=== PATIENT | male | born 1940 | race Caucasian/White ===

== ENCOUNTER 2017-02-09 07:05 | Inpatient (IN) | payer MEDICARE ==
[2017-02-04 09:24] VITALS: BMI 40.8
[~2017-02-09 07:05] MED LIST: ALPRAZolam 0.25 MG TAB PO PRN; ASPIRIN 325 MG TAB PO ONE; SODIUM CHLORIDE 0.9% 1,000 ML in EMPTY BAG 1 BAG IV ONE
[2017-02-09 07:47] LABS: Glucose,Whole Blood 151 mg/dL (75-99)
[2017-02-09] MEDS ORDERED: MIDAZOLAM 2 MG/2 ML VIAL IV ONE ×2 (11:15→13:15)
[2017-02-09] MEDS ORDERED: diphenhydrAMINE 50 MG/ML 1 ML VIAL IVP ONE ×2 (11:16→13:16)
[2017-02-09] MEDS ORDERED: ACETAMINOPHEN TAB 325 MG TAB ONE (11:28)
[2017-02-09] MEDS ORDERED: VERAPAMIL 2.5 MG/ML 2 ML AMP ONE (12:47)
[2017-02-09] MEDS ORDERED: MIDAZOLAM 2 MG/2 ML VIAL ONE (12:47)
[2017-02-09] MEDS ORDERED: diphenhydrAMINE 50 MG/ML 1 ML VIAL ONE (12:56)
[2017-02-09] MEDS ORDERED: HEPARIN SODIUM 1,000 UNIT/ML VIAL ONE (12:56)
[2017-02-09] MEDS ORDERED: LIDOCAINE 2% INJ 20 MG/ML SQ ONE (13:22)
[2017-02-09] MEDS ORDERED: VERAPAMIL SYRINGE (5 MG/10 ML) INTRACORON ONE ×2 (13:23→13:24)
[2017-02-09] MEDS ORDERED: HEPARIN SODIUM 1,000 UNIT/ML VIAL IV ONE (13:24)
[2017-02-09] MEDS ORDERED: BIVALIRUDIN BOLUS 250 MG/50 ML IV ONE (13:46)
[2017-02-09] MEDS ORDERED: BIVALIRUDIN 250 MG in SODIUM CHLORIDE 0.9% 50 ML IV ONE (13:47)
[2017-02-09] MEDS ORDERED: NITROGLYCERIN 1000MCG/10ML SYRINGE INTRACORON ONE (13:56)
[2017-02-09] MEDS ORDERED: CLOPIDOGREL 75 MG TAB ONE (14:01)
[2017-02-09] MEDS ORDERED: IODIXANOL 320 MG/ML 100 ML INTRAARTER ONE (14:02)
[2017-02-09] MEDS ORDERED: CLOPIDOGREL 75 MG TAB PO ONE (14:11)
[2017-02-09] MEDS ORDERED: INSULIN LISPRO (humaLOG) 300 UNIT/3 ML VIAL SQ PRN (15:06)
[2017-02-09 15:13] LABS: Basophils # (A) 0.1 k/uL (0-0.2); Basophils % (A) 1 %; CH 31.9; Eosinophils # (A) 0.3 k/uL (0-0.7); Eosinophils % (A) 3 %; HCT 43.9 % (39.0-53.0); HGB 14.7 gm/dL (13.0-17.5); Luc # (Auto) 0.13; Luc % (Auto) 1; Lymphocytes # (A) 1.2 k/uL (1.0-4.8); Lymphocytes % (A) 12 %; MCH 31.6 pg (25.0-35.0); MCHC 33.5 g/dL (31.0-37.0); MCV 94.2 fL (80.0-100.0); Mean Platelet Volume 7.8; Monocytes # (A) 0.6 k/uL (0-1.0); Monocytes % (A) 6 %; Neutrophils # (A) 8.1 k/uL (1.3-7.7); Neutrophils % (A) 78 %; RBC 4.66 m/uL (4.30-5.90); RDW 14.2 % (11.5-15.5); WBC 10.4 k/uL (3.8-10.6); WBC (Perox) 9.98
[2017-02-09 15:51] LABS: Anion Gap 12 mmol/L; Blood Urea Nitrogen 16 mg/dL (9-20); Calcium 9.3 mg/dL (8.4-10.2); Carbon Dioxide 23 mmol/L (22-30); Chloride 107 mmol/L (98-107); Glucose 137 mg/dL (74-99); Non-African American GFR(MDRD) >60 (>60 ml/min/1.73 sqM); Potassium 3.8 mmol/L (3.5-5.1); Sodium 142 mmol/L (137-145)
[2017-02-09] MEDS: SODIUM CHLORIDE 0.9% 1,000 ML IV SCH (16:45)
[2017-02-09 17:02] LABS: Glucose,Whole Blood 143 mg/dL (75-99)
[2017-02-09] MEDS ORDERED: INSULIN LISPRO (humaLOG) 300 UNIT/3 ML VIAL SQ SCH (17:30)
[2017-02-09] MEDS ORDERED: ATORVASTATIN 80 MG TAB PO SCH (17:30)
[2017-02-09] MEDS ORDERED: ACETAMINOPHEN TAB 325 MG TAB PO PRN (20:36)
[2017-02-09] MEDS ORDERED: TEMAZEPAM 15 MG CAP PO PRN (20:37)
[2017-02-09] MEDS ORDERED: MONTELUKAST 10 MG TAB PO SCH (21:00)
[2017-02-09] MEDS ORDERED: INSULIN DETEMIR 100 UNIT/ML 10 ML VIAL SQ SCH (21:00)
[2017-02-09 21:02] LABS: Glucose,Whole Blood 128 mg/dL (75-99)
[2017-02-10] MEDS: SODIUM CHLORIDE 0.9% 1,000 ML IV SCH (00:18)
[2017-02-10] MEDS ORDERED: FUROSEMIDE 10 MG/ML 4 ML VIAL ONE (02:32)
[2017-02-10] MEDS ORDERED: FUROSEMIDE 10 MG/ML 4 ML VIAL IV STA ×2 (02:34→10:02)
[2017-02-10 02:36] LABS: Glucose,Whole Blood 135 mg/dL (75-99)
[2017-02-10] MEDS: NITROGLYCERIN SL TABS 0.4 MG TAB SUBLINGUAL PRN ×2 (02:36→02:41)
--- NOTE | 2017-02-10 03:45 | XR ---
EXAM: XR Chest, 1 View. CLINICAL HISTORY: Shortness of breath. TECHNIQUE: Frontal view of the chest. COMPARISON: CT chest dated 08/05/2015. FINDINGS: Lungs: Interstitial prominence and mild haziness in the lungs, most prominent in the lower lung zones (L>R). Pleural space: No large pleural effusion or pneumothorax. Heart: Mildly enlarged cardiac silhouette. Mediastinum: Unremarkable. Bones/joints: Osseous structures appear intact. IMPRESSION: Interstitial prominence and mild haziness in the lungs, most prominent in the lower lung zones (L>R). Findings may be due to interstitial edema although infectious or inflammatory process cannot be excluded. Recommend clinical correlation.
[2017-02-10] MEDS ORDERED: NITROGLYCERIN OINT 1 INCH/GM PACKET TOPICAL ONE (04:55)
[2017-02-10] MEDS ORDERED: HEPARIN SODIUM,PORCINE 5,000 UNIT/ML 1 ML VIAL IV PRN (05:05)
[2017-02-10] MEDS ORDERED: HEPARIN SODIUM,PORCINE 5,000 UNIT/ML 1 ML VIAL IV ONE (05:05)
[2017-02-10 05:06] LABS: ABG HCO3 21 mmol/L (21-25); ABG PCO2 31 mmHg (35-45); ABG PH 7.46 (7.35-7.45); ABG PO2 72 mmHg (83-108); ABG TCO2 22 mmol/L (19-24)
[2017-02-10] MEDS ORDERED: HEPARIN SODIUM,PORCINE/D5W PMX 25,000 UNIT in DEXTROSE/WATER 1 500ML.BAG IV SCH (05:15)
[2017-02-10 05:42] LABS: Glucose,Whole Blood 143 mg/dL (75-99)
[2017-02-10 06:09] LABS: Basophils % (A) 0 %; CH 31.9; CHCM 33.9; Eosinophils % (A) 0 %; HCT 43.4 % (39.0-53.0); HDW 2.56; HGB 14.4 gm/dL (13.0-17.5); Luc # (Auto) 0.12; Luc % (Auto) 1; Lymphocytes # (A) 0.7 k/uL (1.0-4.8); Lymphocytes % (A) 6 %; MCH 31.4 pg (25.0-35.0); MCHC 33.2 g/dL (31.0-37.0); MCV 94.7 fL (80.0-100.0); Mean Platelet Volume 8.1; Monocytes # (A) 0.6 k/uL (0-1.0); Monocytes % (A) 5 %; Neutrophils # (A) 10.6 k/uL (1.3-7.7); Neutrophils % (A) 88 %; RBC 4.59 m/uL (4.30-5.90); RDW 14.3 % (11.5-15.5); WBC 12.1 k/uL (3.8-10.6)
[2017-02-10 06:32] LABS: Anion Gap 11 mmol/L; Blood Urea Nitrogen 16 mg/dL (9-20); Calcium 9.3 mg/dL (8.4-10.2); Carbon Dioxide 26 mmol/L (22-30); Chloride 107 mmol/L (98-107); Glucose 146 mg/dL (74-99); Non-African American GFR(MDRD) >60 (>60 ml/min/1.73 sqM); Potassium 3.9 mmol/L (3.5-5.1); Sodium 144 mmol/L (137-145)
[2017-02-10] MEDS ORDERED: INSULIN LISPRO (humaLOG) 300 UNIT/3 ML VIAL SQ SCH ×2 (07:30→12:30)
[2017-02-10] MEDS ORDERED: NITROGLYCERIN OINT 1 INCH/GM PACKET TOPICAL SCH (08:00)
[2017-02-10] MEDS ORDERED: SODIUM CHLORIDE 0.9% 1,000 ML in EMPTY BAG 1 BAG IV ONE (08:23)
[2017-02-10] MEDS ORDERED: ALPRAZolam 0.5 MG TAB PO PRN (08:23)
[2017-02-10] MEDS ORDERED: ALPRAZolam 0.25 MG TAB PO PRN (08:23)
[2017-02-10] MEDS ORDERED: ASPIRIN 325 MG TAB PO STA (08:23)
[2017-02-10] MEDS ORDERED: NITROGLYCERIN SL TABS 0.4 MG TAB SUBLINGUAL PRN (08:23)
[2017-02-10] MEDS ORDERED: ATORVASTATIN 80 MG TAB PO STA (08:23)
[2017-02-10] MEDS ORDERED: ISOSORBIDE MONONITRATE ER 60 MG TAB.ER.24H PO SCH (09:00)
[2017-02-10] MEDS ORDERED: amLODIPine 10 MG TAB PO SCH (09:00)
[2017-02-10] MEDS ORDERED: CLOPIDOGREL 75 MG TAB PO SCH (09:00)
[2017-02-10] MEDS ORDERED: METOPROLOL TARTRATE 50 MG TAB PO SCH (09:00)
[2017-02-10] MEDS ORDERED: ASPIRIN 81 MG CHEW PO SCH (09:00)
[2017-02-10] MEDS ORDERED: LISINOPRIL 5 MG TAB PO SCH (09:00)
--- NOTE | 2017-02-10 10:16 | ECHOF ---
Referral Reason:post cath chest pain MEASUREMENTS -------- HEIGHT: 182.9 cm WEIGHT: 126.1 kg BP: 130/76 IVSd: 1.1 cm (0.6 - 1.1) LVIDd: 6.1 cm (3.9 - 5.3) LVPWd: 1.6 cm (0.6 - 1.1) IVSs: 1.1 cm LVIDs: 5.4 cm LVPWs: 1.9 cm LAESV Index (A-L): 29.23 ml/m Ao Diam: 3.0 cm (2.0 - 3.7) AV Cusp: 1.1 cm (1.5 - 2.6) LA Diam: 4.8 cm (2.7 - 3.8) MV EXCURSION: 16.790 mm (> 18.000) MV EF SLOPE: 134 mm/s (70 - 150) EPSS: 2.3 cm MV E Hosea: 1.70 m/s MV DecT: 179 ms MV A Hosea: 0.25 m/s MV E/A Ratio: 6.70 AV maxP.96 mmHg AV meanP.07 mmHg AR PHT: 342 ms RAP: 5.00 mmHg RVSP: 16.22 mmHg FINDINGS -------- Undetermined rhythm. This was a technically difficult study with suboptimal views. The left ventricle is mildly dilated. There is mild concentric left ventricular hypertrophy. There is severe global hypokinesis of LV . Overall left ventricular systolic function is severely impaired with, an EF between 20 - 25 %. Mitral Doppler inflow pattern suggests diastolic filling abnormality 34.11. The right ventricle is normal in size and function. LA is midly dilated 29-33ml/m2. The right atrium is normal in size. 1.5mg of Definity was utilized for enhancement of images Aortic valve is trileaflet and is mildly thickened. There is mild aortic stenosis present. Peak/mean gradient across the Aortic Valve is 20.96mmHg / 13.07mmHg. The mitral valve leaflets are mildly thickened. Mild mitral regurgitation is present. Cannot rule out vegetation. Mild tricuspid regurgitation present. The right ventricular systolic pressure, as measured by Doppler, is 16.22mmHg. Pulmonic valve appears structurally normal. The aortic root size is normal. The pericardium is normal. CONCLUSIONS -------- 1. Undetermined rhythm. 2. The right atrium is normal in size. 3. 1.5mg of Definity was utilized for enhancement of images 4. Aortic valve is trileaflet and is mildly thickened. 5. There is mild aortic stenosis present. 6. Peak/mean gradient across the Aortic Valve is 20.96mmHg / 13.07mmHg. 7. The mitral valve leaflets are mildly thickened. 8. Mild mitral regurgitation is present. 9. Cannot rule out vegetation. 10. Mild tricuspid regurgitation present. 11. The right ventricular systolic pressure, as measured by Doppler, is 16.22mmHg. 12. This was a technically difficult study with suboptimal views. 13. Pulmonic valve appears structurally normal. 14. The aortic root size is normal. 15. The pericardium is normal. 16. The left ventricle is mildly dilated. 17. There is mild concentric left ventricular hypertrophy. 18. There is severe global hypokinesis of LV . 19. Overall left ventricular systolic function is severely impaired with, an EF between 20 - 25 %. 20. Mitral Doppler inflow pattern suggest diastolic filling abnormality 34.11. 21. The right ventricle is normal in size and function. 22. LA is midly dilated 29-33ml/m2. [facility]/ILO INTELLIGENCE SUPPORT: Susie Blair RDCS
[2017-02-10] MEDS ORDERED: NITROGLYCERIN-D5W PMX 50 MG in DEXTROSE/WATER 1 250ML.BAG IV SCH (10:30)
[2017-02-10 11:05] VITALS: BP 129/80; PULSE 120; RESP 30; TEMP 97.1
[2017-02-10] MEDS ORDERED: SODIUM CHLORIDE 0.9% 1,000 ML IV ONE (11:07)
[2017-02-10] MEDS ORDERED: NOREPINEPHRIN 4 MG-0.9% NS PMX 4 MG/250 ML ML IV ONE (11:07)
[2017-02-10] MEDS ORDERED: EPINEPHrine 10 ML SYRINGE (0.1 MG/ML) IV ONE ×3 (11:25→11:39)
[2017-02-10] MEDS ORDERED: DOPamine DRIP 800 MG in DEXTROSE/WATER 1 500ML.BAG IV ONE (11:45)
[2017-02-10] MEDS ORDERED: IOHEXOL 350 MG/ML 100 ML BOTTLE INTRATHECA ONE (11:54)
[2017-02-10] MEDS ORDERED: EPINEPHrine 10 ML SYRINGE (0.1 MG/ML) ONE (12:52)
[2017-02-10] MEDS ORDERED: SODIUM BICARB 8.4% 50 ML SYR (1 MEQ/ML) ONE (12:52)
--- NOTE | 2017-02-10 15:23 | PN ---
Mr. Bhatti at 11:47 today. I waited and after his came, I spoke to her in the surgical lounge at length. I gave her the details of the procedure that was performed yesterday again and events of last night, which included some shortness of breath. I also suggested that we did a prolonged CPR, resuscitated him, then I performed coronary angiography which revealed that the circumflex was patent with intrinsic dissection, but good flow. RCA was widely patent. I do not believe this is an acute occlusion issue. Probably it is a worsening heart failure in addition to some ischemia as a combination. Patient's and son were both understanding. I spoke to his son Mr. Jed Bhatti as well and explained to them the details of the events and the unfortunate outcome. They seemed both to be very understanding and appreciative.
--- NOTE | 2017-02-10 18:05 | CC ---
DATE OF SERVICE: 02/09/2017. PROCEDURE: Coronary left heart catheterization and coronary angiography. PERFORMED BY: Dr. Radha Noel. CLINICAL INFORMATION: Mr. Riaz Bhatti is a 76-year-old gentleman with a history of type 2 diabetes, hypertension, hyperlipidemia, previous bypass surgery who underwent stenting of circumflex in 2 areas performed by me in September 2016. This gentleman has been having symptoms strongly suggestive of angina, was brought in for the procedure electively. He has history of obesity, obstructive sleep apnea syndrome, wears a BiPAP at night. He also has type 2 diabetes mellitus. In 1997 he had aortocoronary bypass surgery with SHELL to LAD and a vein graft to the diagonal but over the years the vein graft to the diagonal was occluded. RCA has been patent, was stented in May 2014 and the last study revealed that this vessel was widely patent. PROCEDURE NOTE: Under local anesthesia and strict aseptic precautions, a 6 Senegalese introducer was placed in the left radial artery. I used a Judit catheter to perform selective injection of the SHELL graft and also of the ewiiaapaayp RCA. I then used a standard left Max catheter to perform selective coronary angiography. I noted that the circumflex that was stented in two areas, which was the mid and distal area. The distal one was widely patent and the proximal portion of the stented segment and also proximal to the stented segment had any area of narrowing of up to 80 to 90%. He was advised intervention that was performed expeditiously. CORONARY ANGIOGRAPHY FINDINGS: LEFT INTERNAL MAMMARY ARTERY GRAFT TO LAD: The graft is widely patent. The insertion site is also free of significant disease. There is diffuse disease within the ewiiaapaayp LAD and that also goes back and opacifies the diagonal. There is no significant disease and there is good flow noted in the LAD system. RIGHT CORONARY ARTERY: This vessel was previously stented in 2013. In the midportion the stent is patent. It is a very dominant vessel, has diffuse calcification, minor irregularities. No more than 30% to 35% distally bifurcates into good caliber PDA and PLV that supplies a sizable amount of myocardium. LEFT MAIN CORONARY ARTERY: A short, patent, disease-free vessel that bifurcates into LAD and circumflex. LEFT ANTERIOR DESCENDING CORONARY ARTERY: This vessel is totally occluded in the midportion after some septal and diagonal branches unchanged from before. LEFT POSTERIOR CIRCUMFLEX CORONARY ARTERY. It gives off a small first obtuse marginal a moderate size second obtuse marginal that is diffusely diseased unchanged from before. After the origin of the 2 obtuse marginals, there is evidence of restenosis in the proximal aspect of the stented segment of the proximal stent and also proximal to the lesion. The distal stent appears to be widely patent. The stent and area of narrowing is located immediately after a groove branch and appears to be about 80 to 90%. The distal stent is widely patent. FINAL IMPRESSION: This patient has a stenosis involving the circumflex just proximal to and involving the proximal portion of the proximal stent and circumflex. The distal stent is patent. SHELL to LAD is patent with diffuse narrowing involving the LAD but good flow. The RCA is widely patent and unchanged. RECOMMENDATIONS: I am recommend intervention of the circumflex and mid and proceeded to perform this in the same setting.
--- NOTE | 2017-02-10 18:12 | PTCA ---
DATE OF SERVICE: 02/09/2017 PROCEDURE: PTCA and stenting of mid circumflex. PERFORMED BY: Dr. Radha Noel. I initially tried a JL 4.5 catheter but I had difficulty switched over to Q-curved 3.5 catheter. With this I was able to get a decent guide support. I used a BMW wire to cross the lesion and wired was kept distally a 2.5 caliber, NC trek balloon 12 mm length was used to predilate the lesion. I then used a 3.25 caliber, 12 mm long Xience stent and deployed this. Stent was deployed inside of a stent in the proximal portion and also proximal to the area. Excellent angiographic result was achieved. Multiple angiograms were obtained. The patient received Angiomax bolus and drip as per protocol. He also received additional Plavix and he was already on Plavix to begin with. The TR band was then taken out as per protocol and hemostasis was secured, good saturation of the fingers of the left hand was noted. For the entire procedure of PTCA stenting and coronary angiography one hour of conscious sedation was administered and the patient was monitored very closely. Excellent angiographic result without complication was achieved and patient was sent to the room in stable condition.
--- NOTE | 2017-02-10 18:14 | LTR ---
February 10, 2017 RE: Riaz Bhatti Dear Dr. Cabrera: Thank you for the opportunity to participate in the care of Mr. Bhatti. I am pleased to report that he had a good angiographic result. The proximal stent in the circumflex appears to have restenosed and also additionally there was a lesion proximal to the stented segment as well. A drug-eluting stent was deployed. Good angiographic result was achieved and I expect he will be discharged tomorrow if he remains stable. Thank you for your referral. Please call for questions. With kind regards, Sincerely, PAM MCKEE MD
--- NOTE | 2017-02-10 18:58 | PCN ---
DATE OF PROCEDURE: 02/10/2017 PROCEDURE: Coronary angiography. PERFORMED BY: Dr. Radha Noel. CLINICAL INFORMATION: Mr. Bhatti underwent stenting of circumflex with a good result yesterday. Last night he developed shortness of breath and had mild chest discomfort, seemed to be clinically in a pulmonary edema-type picture, received Lasix this morning. I saw the patient, explained to him that his troponin level was mildly elevated, not consistent with total occlusion of the vessel; sometimes you see troponin elevation of this magnitude after intervention, but I suggested we will do a coronary angiography. He also has shortness of breath and echocardiogram revealed that there was a global decrease in contractility, which was somewhat new because his ejection fraction was in the range of 40% or so with inferolateral hypokinesia, but ejection fraction now was in the 25% range. There was no pericardial effusion. I suggested we will perform coronary angiography and restudy his vessel. However, before he could be brought down for the procedure, he developed more shortness of breath on the floor and developed severe shortness of breath and pulmonary edema. He was brought down for the procedure, and before we would place him on the table he developed significant hypotension and hypoxia. He was intubated by the nurse talent manager and then CPR was started for hypotension and lack of pulse. After CPR with multiple administrations of epinephrine and bicarbonate, his pulse returned. He was placed in the farm labor contractor and then I performed coronary angiography. PROCEDURE NOTE: From the left femoral approach, I was able to get femoral arterial access. From the right femoral approach I got a venous access. I first placed a 5 Kazakh balloon-tipped pacemaker and got good capture and I paced him at a back-up rate of 50. He was in a sinus as well as idioventricular rhythm with underlying bundle branch block. From the left coronary approach using a standard Max catheter, I performed coronary angiography and noted that the circumflex vessel was patent with some intrinsic dissection, but the flow was very brisk. There was no change in angiographic appearance of the LAD. I also performed selective coronary injection of the right coronary artery, which was also widely patent. Following these injections, patient again went into severe hypotension requiring CPR. A prolonged CPR was performed; multiple administrations of epinephrine, bicarbonate given. Also pacemaker was paced. After a very prolonged CPR, the code was called off. Patient had a flat line with no pulse and no pressure. Underlying rhythm was flat and he was only having some intermittent activity with pacemaker. Code was called off at 11:47 a.m. Patient was pronounced . I called and talked to the patient's before I started the coronary angiography and explained to her that he was not doing well and advised her to come to the surgical lounge. I asked her to have somebody else drive her. I explained that he was not doing well and that he is in a critical condition. This patient , and it appears that the circumflex vessel that was stented is patent with intrinsic dissection but brisk flow. After prolonged CPR, the intrinsic dissection was more evident, and this may be probably related to the CPR and recent procedure, but I do not believe total occlusion of circumflex was the cause of his . His LV had worsened substantially and it appeared that it was more or less of a heart failure type rather than an occlusion of the artery. Patient's troponin was also 1.1 before the procedure. At the time of this dictation I am waiting for his to come in so I can talk to her. I also spoke to Dr. Cabrera and gave him the details of the events and the mode of . The sad outcome will be discussed with the patient's as soon as she arrives.
--- NOTE | 2017-02-15 10:45 | CDI ---
In responding to this query, please exercise your independent professional judgment. The [facility] Coding Staff and Clinical Documentation Specialists appreciate your assistance in clarifying documentation, maintaining compliance with coding guidelines, accurately documenting patients condition and capturing severity of illness. The fact that a question is asked does not imply that any particular answer is desired or expected. Communication forms are a method of clarifying documentation and are not made part of the Legal Health Record. Thank you in advance for your clarification. Last Revision, December 2015 Gin Gambino [address] [facility] [place] [address] Documentation Clarification Form Date: 02/15/2017 10:33:00 AM From: Cheyenne Wolff RN, CCDS Admit Date: 02/10/2017 11:24:00 AM Patient Name: Riaz Bhatti Visit Number: [id number] Dr. Dylan Noel CHF is documented in the final Progress Note. History/Risk Factors: EF 45%, CAD, PCI, CABG Clinical Indicators: 02/10 Procedure Note: His LV had worsened substantially and it appeared that it was more or less of a heart failure type rather than an occlusion of the artery. He also has shortness of breath and echocardiogram revealed that there was a global decrease in contractility, which was somewhat new because his ejection fraction was in the range of 40% or so with inferolateral hypokinesia, but ejection fraction now was in the 25% range. Progress Note 02/10/2017: Probably it is a worsening heart failure in addition to some ischemia as a combination. VS/Pulse OX per nursing note: "Patient complained of shortness of breath. Vitals checked and lung assessment completed. Sats 89-91%, crackles heard at bases. Dr. DIMA Noel notified and order for Lasix received. Lasix given as well as PRN xanax, and sats still 89%. 5 minutes later patients sats dropped to 81% and patient having chest pain 05/10. Dr. William notified. Patient taken to clinical laboratory assistant." RR rate 30 @ 0950 BNP: 5260 02/10 Echocardiogram Results: EF 20/25%, LV is mildly dilated, mild concentric LVH, Diastolic filling abnormality, LA is mildly dilated. Mild M/T regurgitation 02/10 Chest X Ray: "Interstitial prominence and mild haziness in the lungs, most prominent in the lower lung zones (L>R). Findings may be due to interstitial edema although infectious or inflammatory process cannot be excluded." Treatment: Lasix 40mg IVP x1 In your professional opinion, can you please clarify the acuity and type of CHF if known? Acute Acute on Chronic AND Systolic Diastolic Systolic and Diastolic Cor Pulmonale (Right Sided HF w/ Pulmonary HTN) Unable to determine Other, please specify If known, please specify if Heart Failure is due to: Hypertension Rheumatic Fever Please document in your discharge summary in order to capture severity of illness and risk of mortality. Include clinical findings that support your diagnosis. FYI: Press F11 to launch patient chart. Place X here if this finding has no clinical significance, is not applicable or if you are not able to provide any additional documentation. CINDYD
--- NOTE | 2017-02-15 11:02 | CDI ---
In responding to this query, please exercise your independent professional judgment. The [facility] Coding Staff and Clinical Documentation Specialists appreciate your assistance in clarifying documentation, maintaining compliance with coding guidelines, accurately documenting patients condition and capturing severity of illness. The fact that a question is asked does not imply that any particular answer is desired or expected. Communication forms are a method of clarifying documentation and are not made part of the Legal Health Record. Thank you in advance for your clarification. Last Revision, December 2015 Gin Gambino [address] [facility] [place] [address] Documentation Clarification Form Mortality review Date: 02/15/2017 10:46:00 AM From: Cheyenne Wolff RN, CCDS Admit Date: 02/10/2017 11:24:00 AM Patient Name: Riaz Bhatti Visit Number: [id number] Dr. Dylan Noel The patient presented with the following respiratory symptoms SOB and Hypoxemia History/Risk Factors: Tobacco use: former smoker Clinical Indicators: 02/10 Procedure Note: " was brought down for the procedure, and before we would place him on the table he developed significant hypotension and hypoxia. He was intubated by the nurse supervisor shrimp pond and then CPR was started for hypotension and lack of pulse." 02/10/17 11:21 - INDIVIDUAL SMALL GROUP INSTRUCTOR Note: "called to quality control lab tech to intubate patient in distress. Pt was unresponsive on arrival in [place]. Pt was atraumatically intubated with glidescope as an 8.0 OET was placed (1055). CPR was not interrupted to intubate. Bilateral breath sounds noted, and OET was secured at 23cm. At that time the patients care was turned over to the RT and quality control lab tech RN." Vital signs/Pulse oximetry: 02/10 Nursing Note: "Patient complained of shortness of breath. Vitals checked and lung assessment completed. Sats 89-91%, crackles heard at bases. Dr. DIMA Noel notified and order for Lasix received. Lasix given as well as PRN xanax and sats still 89%. 5 minutes later patients sats dropped to 81% and patient having chest pain 7/10. Dr. William notified. Patient taken to quality control lab tech. " ABG/CBG: pH 7.46 pCO2 31 pO2 72 pHCO3 21 Treatment: Patient was intubated in Quality Cloth Tester Continuous Pulse ox: per unit protocol CPAP per previous home settings Lasix 40 IVP x1 O2: Room air, to CPAP at 5-6L, to Vent 100% FIO2 In your professional opinion, can you please clarify if these findings signify one of the following conditions? Acuity: o Acute o Chronic o Acute on Chronic Respiratory Status: o Respiratory failure with hypoxia o Respiratory failure with hypercapnia o Acute Respiratory Distress o Other Diagnosis, please specify o Unable to determine Please document in your discharge summary in order to capture severity of illness and risk of mortality. Include clinical findings that support your diagnosis. FYI: Press F11 to launch patient chart. Place X here if this finding has no clinical significance, is not applicable or if you are not able to provide any additional documentation. LEXI
--- NOTE | 2017-02-15 11:17 | CDI ---
In responding to this query, please exercise your independent professional judgment. The [employer] Coding Staff and Clinical Documentation Specialists appreciate your assistance in clarifying documentation, maintaining compliance with coding guidelines, accurately documenting patients condition and capturing severity of illness. The fact that a question is asked does not imply that any particular answer is desired or expected. Communication forms are a method of clarifying documentation and are not made part of the Legal Health Record. Thank you in advance for your clarification. Last Revision, December 2015 Gin Gambino [address] [facility] [place] [address] Documentation Clarification Form Mortality Review Date: 02/15/2017 11:02:00 AM From: Cheyenne Wolff RN,CCDS Admit Date: 02/10/2017 11:24:00 AM Patient Name: Riaz Bhatti Visit Number: [id number] Dr. Dylan Noel Hypotension is documented in the procedure and progress notes accompanied by PEA , hypoxia, and heart failure. Patient history/risk factors: CAD, HTN, Obesity, CABG, PCI, former Smoker Clinical Indicators: 02/10 Procedure Note: "developed severe shortness of breath and pulmonary edema. He was brought down for the procedure, and before we would place him on the table he developed significant hypotension and hypoxia. He was intubated by the nurse caustic plant worker and then CPR was started for hypotension and lack of pulse. After CPR with multiple administrations of epinephrine and bicarbonate, his pulse returned." Vitals: Code record and environmental laboratory technician vitals are not yet scanned into the record Treatment: Multiple rounds of EPI, Bicarb IVP Levophed Gtt Dopamine Drip In your professional opinion, can you please specify the type of shock if known ? Cardiogenic Shock o Cause Hypovolemic Shock o Cause Other, please specify Unable to determine Please document in your progress notes and discharge summary in order to capture severity of illness and risk of mortality. Include clinical findings that support your diagnosis. FYI: Press F11 to launch patient chart. Place X here if this finding has no clinical significance, is not applicable or if you are not able to provide any additional documentation. LEXI
--- NOTE | 2017-02-17 10:25 | DS ---
DATE OF ADMISSION: 02/10/2017 DATE OF EXPIRATION : 02/10/2017 DIAGNOSES: 1. CAD with prior bypass surgery. 2. Acute hypoxic respiratory failure with probable cardiogenic pulmonary edema. 3. History of type 2 diabetes mellitus. 4. History of obstructive sleep apnea syndrome, uses a BiPAP. This gentleman was brought in for an elective coronary angiography because of symptoms of angina pectoris. In September 2016, I performed stenting in 2 areas, his circumflex vessel. Prior to that, I performed RCA stenting. In 1997, he had aortocoronary bypass surgery with a SHELL to LAD and vein graft to the diagonal that was occluded some time ago. I brought him in for the procedure earlier and hydrated him and procedure was performed on 02/09/2017 uneventfully from the left radial approach. I noted that he had a significant lesion in the circumflex, the proximal lesion that was stented in September was restenosed as well as a new stenosis proximal to the previous stent. I addressed this with a new drug-eluting stent and this was performed uneventfully with an excellent angiographic result without complication. He was sent to the room, was stable but in the night, he developed episodes of shortness of breath requiring IV Lasix. I evaluated him in the morning and noted that he did have shortness of breath, but the EKG showed left bundle with a sinus mechanism and it was inconclusive. His troponin was 1.1 and echo revealed a significant decrease in LV function. I had hydrated the patient over the previous day in view of the renal failure and his LV dysfunction was a matter of concern and his BNP was over 5000. I took him to the Cardiac [facility]ardation Nurse after due discussion with the patient and I also talked to his on the phone when his situation deteriorated. He was brought to the Cardiac Mental Retardation Nurse, was found to be in significant pulmonary edema, was quite hypoxemic. He was intubated and CPR was performed. He was resuscitated. He did have a pulse on a fairly high dose of epinephrine and Levophed. Multiple amps of epi and bicarb was given. I performed coronary angiography which revealed that the circumflex was patent, RCA was patent, the SHELL injection was not performed. There was an intrinsic dissection within the circumflex vessel at the site of stenting but this occurred after multiple CPR efforts, so I assumed that the vessel was widely patent. However, his LV function was quite poor based on echocardiogram. Following the cardiac cath, he again went into a pulseless electrical activity-type picture and a temporary pacemaker was also placed. He was paced for quite some time and a prolonged CPR was performed and eventually the patient . Multiple amps of bicarbonate and epinephrine were given throughout. I believe that the cause of was cardiogenic shock with pulmonary edema with acute on chronic heart failure. However, the vessel being patent raises concern that his LV failure was a predominating cause of his . His echocardiogram revealed ejection fraction of 20% to 25% earlier in the day and I suspect we are dealing with a LV failure as the most precipitating cause for his . With the vessel being patent, it is a bit unclear whether acute ischemia had a contribution or it was plain LV failure with underlying multiple comorbid conditions. I spoke to the patient's and son at length after he and explained to them the details of the circumstances and I also spoke to Dr. Gabe Cabrera. It is unfortunate outcome on a patient that I had taken care for several years and it was quite a frustrating experience in the end. This was also communicated with the patient's family. The seemed to understand the circumstances, situation and appreciated the efforts. LEXI
== END 2017-02-10 17:00 | disposition expired | DRG 246 ==
LOC: CATHCVL 07:05 → 6SEL 14:03 → 6ICU 02-10 11:16 → CATHCVL 02-10 11:24
PROVIDERS: ADMIT Internal Medicine Interventional Cardiology; ATTEND Internal Medicine Interventional Cardiology
PROC: 4A023N7 Measurement of Cardiac Sampling and Pressure, Left Heart, Percutaneous Approach (ICD-10-PCS; principal; 2017-02-10 09:05)
PROC: B2131ZZ Fluoroscopy of Multiple Coronary Artery Bypass Grafts using Low Osmolar Contrast (ICD-10-PCS; principal; 2017-02-10 09:05)
PROC: B2111ZZ Fluoroscopy of Multiple Coronary Arteries using Low Osmolar Contrast (ICD-10-PCS; principal; 2017-02-10 09:05)
PROC: 0BH17EZ Insertion of Endotracheal Airway into Trachea, Via Natural or Artificial Opening (ICD-10-PCS; principal; 2017-02-10 09:05)
PROC: 027034Z Dilation of Coronary Artery, One Artery with Drug-eluting Intraluminal Device, Percutaneous Approach (ICD-10-PCS; principal; 2017-02-10 09:05)
DX: T82.855A Stenosis of coronary artery stent, initial encounter (principal); J96.01 Acute respiratory failure with hypoxia; I25.42 Coronary artery dissection; I50.23 Acute on chronic systolic (congestive) heart failure; I25.110 Atherosclerotic heart disease of native coronary artery with unstable angina pectoris; R57.0 Cardiogenic shock; E11.9 Type 2 diabetes mellitus without complications; Y71.2 Prosthetic and other implants, materials and accessory cardiovascular devices associated with adverse incidents; I45.4 Nonspecific intraventricular block; R09.02 Hypoxemia; E66.9 Obesity, unspecified; G47.33 Obstructive sleep apnea (adult) (pediatric); I11.0 Hypertensive heart disease with heart failure; E78.5 Hyperlipidemia, unspecified; I25.82 Chronic total occlusion of coronary artery; Z95.1 Presence of aortocoronary bypass graft
CPT/HCPCS: 36600; 71010; 80048; 82805; 83880; 84484; 85025; 92950; 93306; 93454; 93458; 94002; 94660